=== PATIENT | male | born 1975 | race African-American/Black ===

== ENCOUNTER 2023-12-25 15:19 | Emergency (ER) | payer MEDICAID, OTHER ==
[~2023-12-25] VITALS: Ht 182.9 cm; Wt 90.0 kg
[2023-12-25 15:20] VITALS: O2SAT 100
[2023-12-25 19:46] VITALS: BP 117/73; PULSE 66; RESP 16; TEMP 98.2
== END 2023-12-25 20:00 | disposition home or self-care (01) ==
LOC: ER 15:19
DX: T40.2X1A Poisoning by other opioids, accidental (unintentional), initial encounter (principal); X58.XXXA Exposure to other specified factors, initial encounter
CPT/HCPCS: 71045; 99283

== ENCOUNTER 2025-07-16 20:19 | Emergency (ER) | payer MEDICAID ==
[~2025-07-16] VITALS: Ht 182.9 cm; Wt 68.0 kg
[2025-07-16 20:22] VITALS: O2SAT 95
[2025-07-16] MEDS ORDERED: TETANUS, DIPHTHERIA, PERTUSSIS VAC/PF 0.5ML (>10YR OLD) IM ONE (20:45)
[2025-07-16] MEDS: PIPERACILLIN/TAZO 3.375G/50ML 50 ML IV ONE (21:00)
[2025-07-16] MEDS: SODIUM CHLORIDE 0.9% (SEPSIS BOLUS) IV ONE (21:00)
[2025-07-16 21:20] LABS: CREATININE 1.7 mg/dL (0.6-1.3); UREA NITROGEN BLOOD 13 mg/dL (9-23)
[2025-07-16 21:21] LABS: ETHANOL BLOOD < 10 mg/dL (<10); PROTEIN TOTAL 7.0 g/dL (6.0-8.3)
[2025-07-16 21:22] LABS: ASPARTATE AMINOTRANSFERASE 27 IU/L (<34); BILIRUBIN DIRECT 0.1 mg/dL (<=3.0); BILIRUBIN TOTAL 0.5 mg/dL (0.1-1.0)
[2025-07-16] MEDS: VANCOMYCIN 1G PREMIX 200 ML IV ONE (21:39)
[2025-07-16] MEDS: DEXAMETHASONE 4MG/ML 1ML VIAL IV ONE (21:46)
[2025-07-16] MEDS: LEVETIRACETAM 500MG PREMIX 100 ML IV ONE (21:46)
[2025-07-16 22:15] LABS: BASOPHILS % 0.3 % (0.0-2.0); EOSINOPHILS % 0.5 % (0.0-5.0); HEMATOCRIT. 42.2 % (42.0-52.0); HEMOGLOBIN. 13.1 g/dL (14.0-18.0); LYMPHOCYTES % 14.8 % (20.0-50.0); MEAN PLATELET VOLUME 9.0 fl (7.4-10.4); MONOCYTES % 6.2 % (2.0-8.0); NEUTROPHILS % 78.2 % (40.0-76.0); PLATELET 284 x1000/uL (130-400); RED BLOOD CELL COUNT 4.81 mill/uL (4.7-6.1); RED CELL DISTRIBUTION WIDTH 14.7 % (11.6-14.6)
[2025-07-16 22:47] LABS: CLARITY URINE CLEAR (CLEAR); GLUCOSE URINE NEGATIVE (NEGATIVE); KETONES URINE NEGATIVE (NEGATIVE); LEUKOCYTE ESTERASE URINE NEGATIVE (NEGATIVE); NITRITE URINE NEGATIVE (NEGATIVE); OCCULT BLOOD URINE NEGATIVE (NEGATIVE); PH URINE 6.0 (4.5-8.0); PROTEIN URINE TRACE (NEGATIVE); SPECIFIC GRAVITY URINE 1.016 (1.005-1.030); UROBILINOGEN URINE 0.2 E.U./dL (0.2-1.0)
[2025-07-16 23:01] LABS: COLOR URINE STRAW (YELLOW)
[2025-07-16 23:02] LABS: WBC URINE 0-2 /hpf (0-2)
[2025-07-16 23:03] LABS: BACTERIA URINE NONE SEEN; RBC URINE NONE SEEN /hpf (0-2); SQUAMOUS EPITHELIAL CELL URINE RARE /lpf (RARE/1+)
[2025-07-16 23:04] LABS: *AMPHETAMINES SCREEN URINE PRESUMPTIVE POSITIVE (NEGATIVE); *BARBITURATES SCREEN URINE NEGATIVE (NEGATIVE); *BENZODIAZEPINES SCREEN URINE NEGATIVE (NEGATIVE); *COCAINE SCREEN URINE NEGATIVE (NEGATIVE); CANNABINOID URINE SCREEN PRESUMPTIVE POSITIVE (NEGATIVE); ECSTASY MDMA SCREEN URINE NEGATIVE (NEGATIVE); METHADONE URINE SCREEN NEGATIVE (NEGATIVE); OPIATES URINE SCREEN NEGATIVE (NEGATIVE); PHENCYCLIDINE URINE SCREEN PRESUMTIVE POSITIVE (NEGATIVE)
[2025-07-16] MEDS: TETANUS, DIPHTHERIA, PERTUSSIS VAC/PF 0.5ML (>10YR OLD) IM ONE (23:35)
[2025-07-17] MEDS: IOHEXOL-350 100 ML BOTTLE ONE (00:06)
[2025-07-17 00:18] LABS: INR 1.0
[2025-07-17 00:25] VITALS: BP 115/67; PULSE 57; RESP 13; TEMP 36.6; O2SAT 100
== END 2025-07-17 00:57 | disposition short-term general hospital (02) ==
LOC: EDBD → ER 20:19 → CMPBEDREQ 07-17 01:09
DX: S06.2XAA Diffuse traumatic brain injury with loss of consciousness status unknown, initial encounter (principal); S01.95XA Open bite of unspecified part of head, initial encounter; A41.9 Sepsis, unspecified organism; R65.21 Severe sepsis with septic shock; F12.10 Cannabis abuse, uncomplicated; F15.10 Other stimulant abuse, uncomplicated; F16.10 Hallucinogen abuse, uncomplicated; Z79.899 Other long term (current) drug therapy; W54.0XXA Bitten by dog, initial encounter; Y93.89 Activity, other specified; Y92.89 Other specified places as the place of occurrence of the external cause; Y99.8 Other external cause status
CPT/HCPCS: 80076; 80305; 80048; 81003; 80320; 83605; 83690; 83735; 85025; 85610; 87040; 87086; 36415; 84145; 71045; 73140; 70496; 70498; 70450; 90715; 93005; 96367; 96368; 90471; 96365; 96375; 99291; J1953; J1100; J2543; J3373; J7030; Q9967; G0480